=== PATIENT | female | born 1955 ===

== ENCOUNTER 2021-10-17 06:25 | Day surgery (SDC) | payer OTHER ==
[~2021-10-17] VITALS: Ht 165.1 cm; Wt 55.8 kg
[~2021-10-17 06:25] MED LIST: FOSAMAX70 MG PO; ZYRTEC10 M3 PO
[2021-10-17] MEDS ORDERED: IBU600 MG PO (10:42)
[2021-10-17] MEDS ORDERED: PERCOCET 5-3251 EACH PO (10:43)
== END 2021-10-17 14:50 | disposition home or self-care (01) ==
LOC: CIR.AMB 06:25
PROVIDERS: ATTEND Obstetrics & Gynecology Gynecology
DX: N81.12 Cystocele, lateral (principal); Z20.822 Contact with and (suspected) exposure to COVID-19